=== PATIENT | female | born 1945 | race Caucasian/White ===

== ENCOUNTER 2019-05-04 10:17 | Day surgery (SDC) | payer OTHER ==
[~2019-05-04] VITALS: Ht 165.1 cm; Wt 59.3 kg
[~2019-05-04 10:17] MED LIST: NO HOME MEDS
[2019-05-04 10:51] VITALS: Ht 165.1 cm; Wt 59.3 kg
[2019-05-04 10:54] VITALS: BP 133/63; PULSE 76; RESP 16
[2019-05-04] MEDS ORDERED: PROPOFOL 40 ML ONE (11:14)
[2019-05-04 12:20] VITALS: BP 130/62; PULSE 67; RESP 18
== END 2019-05-04 14:47 | disposition home or self-care (01) ==
LOC: GIL 10:17
PROVIDERS: ATTEND Internal Medicine Gastroenterology
DX: Z12.11 Encounter for screening for malignant neoplasm of colon (principal); D12.2 Benign neoplasm of ascending colon; K64.8 Other hemorrhoids; K21.9 Gastro-esophageal reflux disease without esophagitis
CPT/HCPCS: 88305; 88312